=== PATIENT | male | born 1965 | race Caucasian/White ===

== ENCOUNTER → 2018-01-20 | Outpatient (CLI) | payer BC ==
[~2018-01-20] MED LIST: ASPI81TA94 PO; ATOR20TA65 PO; DILT120C18 PO; DILT180C81 PO; LEV112 PO
== END ==
LOC: LAB 12:00
PROVIDERS: ATTEND Internal Medicine Cardiovascular Disease
DX: I48.91 Unspecified atrial fibrillation (principal)
CPT/HCPCS: 36415; 82310; 82374; 82435; 82565; 82947; 84132; 84295; 84520